=== PATIENT | male | born 1940 | race Caucasian/White ===

== ENCOUNTER → 2020-03-01 13:17 | Outpatient (BNVA) | payer MEDICARE, OTHER, SELFPAY | PROVIDERS: Family Provider Nurse Practitioner Family; PCP Nurse Practitioner Family; Visit Provider Internal Medicine Rheumatology | DX: M35.3 Polymyalgia rheumatica (principal); Z79.899 Other long term (current) drug therapy; Z11.59 Encounter for screening for other viral diseases; Z11.1 Encounter for screening for respiratory tuberculosis; Z72.89 Other problems related to lifestyle; D89.89 Other specified disorders involving the immune mechanism, not elsewhere classified | CPT/HCPCS: 36415; 80076; 82565; 85025; 85651; 86140; 86480; 86704; 86803; 87340 ==

== ENCOUNTER → 2020-03-01 13:56 | Outpatient (BNVA) | payer MEDICARE, OTHER, SELFPAY | PROVIDERS: Family Provider Nurse Practitioner Family; PCP Nurse Practitioner Family; Visit Provider Internal Medicine Rheumatology | DX: M35.3 Polymyalgia rheumatica (principal); D89.89 Other specified disorders involving the immune mechanism, not elsewhere classified | CPT/HCPCS: 85025 ==

== ENCOUNTER → 2020-04-20 08:36 | Outpatient (BNVA) | payer MEDICARE, OTHER, SELFPAY | PROVIDERS: Family Provider Nurse Practitioner Family; PCP Nurse Practitioner Family; Visit Provider Nurse Practitioner Family | DX: D64.9 Anemia, unspecified (principal); I10 Essential (primary) hypertension; E78.00 Pure hypercholesterolemia, unspecified | CPT/HCPCS: 80053; 80061; 85025 ==

== ENCOUNTER → 2020-08-09 14:13 | Outpatient (BNVA) | payer MEDICARE, OTHER, SELFPAY | PROVIDERS: Family Provider Nurse Practitioner Family; PCP Nurse Practitioner Family; Visit Provider Internal Medicine | DX: M35.3 Polymyalgia rheumatica (principal); Z79.52 Long term (current) use of systemic steroids; Z79.899 Other long term (current) drug therapy | CPT/HCPCS: 36415; 80053; 82550; 85025; 85651; 86140; 99213 ==

== ENCOUNTER → 2020-11-01 13:52 | Outpatient (BNVA) | payer MEDICARE, OTHER, SELFPAY | PROVIDERS: Family Provider Nurse Practitioner Family; PCP Nurse Practitioner Family; Visit Provider Internal Medicine | DX: M35.3 Polymyalgia rheumatica (principal); G62.9 Polyneuropathy, unspecified; Z79.52 Long term (current) use of systemic steroids; Z87.891 Personal history of nicotine dependence | CPT/HCPCS: 99213 ==

== ENCOUNTER → 2021-02-20 14:23 | Outpatient (BNVA) | payer MEDICARE, OTHER, SELFPAY | PROVIDERS: Family Provider Nurse Practitioner Family; PCP Nurse Practitioner Family; Visit Provider Nurse Practitioner Family | DX: R19.7 Diarrhea, unspecified (principal); J11.1 Influenza due to unidentified influenza virus with other respiratory manifestations | CPT/HCPCS: 87400 ==

== ENCOUNTER → 2021-04-25 09:06 | Outpatient (BNVA) | payer MEDICARE, OTHER, SELFPAY | PROVIDERS: Family Provider Nurse Practitioner Family; PCP Nurse Practitioner Family; Visit Provider Internal Medicine | DX: Z01.89 Encounter for other specified special examinations (principal); M35.3 Polymyalgia rheumatica; M19.90 Unspecified osteoarthritis, unspecified site; Z79.899 Other long term (current) drug therapy; G62.9 Polyneuropathy, unspecified | CPT/HCPCS: 80053; 85025; 85651; 86140 ==

== ENCOUNTER → 2021-04-27 13:45 | Outpatient (BNVA) | payer MEDICARE, OTHER, SELFPAY | PROVIDERS: Family Provider Nurse Practitioner Family; PCP Nurse Practitioner Family; Visit Provider Internal Medicine | DX: M35.3 Polymyalgia rheumatica (principal); Z87.891 Personal history of nicotine dependence | CPT/HCPCS: 99213 ==

== ENCOUNTER → 2021-08-09 09:51 | Outpatient (BNVA) | payer MEDICARE, OTHER, SELFPAY | PROVIDERS: Family Provider Nurse Practitioner Family; PCP Nurse Practitioner Family; Visit Provider Internal Medicine | DX: Z79.899 Other long term (current) drug therapy (principal); M35.3 Polymyalgia rheumatica | CPT/HCPCS: 80053; 85025; 85651; 86140 ==

== ENCOUNTER → 2021-08-16 09:40 | Outpatient (BNVA) | payer MEDICARE, OTHER, SELFPAY | PROVIDERS: Family Provider Nurse Practitioner Family; PCP Nurse Practitioner Family; Visit Provider Internal Medicine | DX: M35.3 Polymyalgia rheumatica (principal); G62.9 Polyneuropathy, unspecified; Z79.899 Other long term (current) drug therapy | CPT/HCPCS: 71046; 73120; 99214 ==

== ENCOUNTER 2021-08-16 11:31 | Outpatient (CLI) | payer MEDICARE, OTHER, SELFPAY ==
--- NOTE | 2021-08-16 11:42 | XR_ITS ---
WS: [id number] XR chest 2V* [id number] REASON FOR EXAM: Z79.899 - Other custodial (current) drug therapy FINDINGS: Previous sternotomy. Moderate tortuosity and ectasia of the thoracic aorta without focal aneurysmal dilatation. Normal hea rt size. Calcified granulomatous disease in both hemithoraces. No active pulmonary parenchymal or pleural dise ase. Dorsal column stimulator T7 level. Mild thoracic scoliosis convex right. No significant vertebral body abnormality. XR/XR chest 2V* [id number] IMPRESSION: No significant pulmonary abnormality.
--- NOTE | 2021-08-16 11:42 | XR_ITS ---
WS: [id number] XR hand RT 2V [id number] REASON FOR EXAM: M35.3 - Polymyalgia rheumatica FINDINGS: Arthropathic change characterized by joint space narrowing, subchondral sclerosis, and small osteophy tic spurs is seen in the DIP and MIP joints of the second and third fingers. Similar arthropathic changes are seen in the MP joints of the second through the fifth fingers, most notably in the second and third. Similar arthropathic change, although more severe, is seen in the joints of the thumb most notably th e carpal metacarpal joint. No soft tissue abnormality. 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
--- NOTE | 2021-08-16 11:42 | XR_ITS ---
WS: [id number] XR hand LT 2V [id number] REASON FOR EXAM: M35.3 - Polymyalgia rheumatica FINDINGS: Mild narrowing of the joint space with subchondral sclerosis and small osteophytes involving the MIP and DIP joints of the second and third fingers. Similar arthropathic changes seen in the joints of th e thumb including the carpal metacarpal joint which shows the most severe arthropathic change in the hand. No soft tissue abnormality. XR/XR hand LT 2V [id number] IMPRESSION: Arthropathic change in the left hand compatible with osteoarthritis as above.
== END 2021-08-16 11:32 | disposition home or self-care (01) ==
LOC: RAD 11:39
PROVIDERS: PCP Nurse Practitioner Family; Visit Provider Internal Medicine
DX: G62.9 Polyneuropathy, unspecified (principal); M35.3 Polymyalgia rheumatica; Z79.899 Other long term (current) drug therapy
CPT/HCPCS: 71046; 73120

== ENCOUNTER → 2021-10-13 08:34 | Outpatient (BNVA) | payer MEDICARE, OTHER, SELFPAY | PROVIDERS: PCP Nurse Practitioner Family; Visit Provider Internal Medicine | DX: G62.9 Polyneuropathy, unspecified (principal); M35.3 Polymyalgia rheumatica; Z79.899 Other long term (current) drug therapy | CPT/HCPCS: 80053; 85025; 85651; 86140 ==

== ENCOUNTER → 2021-10-18 09:04 | Outpatient (BNVA) | payer MEDICARE, OTHER, SELFPAY | PROVIDERS: PCP Nurse Practitioner Family; Visit Provider Internal Medicine | DX: M35.3 Polymyalgia rheumatica (principal); G62.9 Polyneuropathy, unspecified; Z79.52 Long term (current) use of systemic steroids; Z87.891 Personal history of nicotine dependence | CPT/HCPCS: 99213; 99214 ==

== ENCOUNTER → 2022-01-18 09:16 | Outpatient (BNVA) | payer MEDICARE, OTHER, SELFPAY | PROVIDERS: PCP Nurse Practitioner Family; Visit Provider Nurse Practitioner Family | DX: E78.5 Hyperlipidemia, unspecified (principal); I10 Essential (primary) hypertension | CPT/HCPCS: 80053; 80061 ==

== ENCOUNTER 2022-01-31 08:57 | Outpatient (CLI) | payer MEDICARE, OTHER, SELFPAY ==
[2022-01-31 09:43] LABS: Basophils % 0.6 %; Eosinophils # 0.3 10^3/uL (0.0-0.8); Eosinophils % 4.4 %; Hematocrit 34.7 % (42.0-52.0); Hemoglobin 11.3 g/dL (11.7-16.6); Lymphocytes # 1.7 10^3/uL (0.8-4.8); Lymphocytes % 25.9 %; Mean Corpuscular HGB Conc 32.6 g/dL (30.0-36.0); Mean Corpuscular Hemoglobin 29.9 pg (28.0-34.0); Mean Corpuscular Volume 91.8 fl (80-94); Mean Platelet Volume 10.4 fL (7.4-10.4); Monocytes # 0.7 10^3/uL (0.2-0.9); Monocytes % 10.2 %; Neutrophils # 3.86 10^3/uL (1.8-7.7); Neutrophils % 58.6 %; Nucleated Red Blood Cells % 0 %; Platelet Count 307 10^3/cmm (130-400); Red Blood Count 3.78 10^6/uL (4.1-5.3); Red Cell Distribution Width 14.3 % (12.1-15.1); White Blood Count 6.6 10^3/uL (4.0-10.0)
[2022-01-31 10:09] LABS: Alanine Aminotransferase 9 U/L (0-41); Albumin Level 4.3 g/dL (3.5-5.2); Alkaline Phosphatase 51 IU/L (40-130); Anion Gap 14.8 (5-19); Aspartate Amino Transferase 15 U/L (0-40); Blood Urea Nitrogen 15 mg/dL (8-23); Calcium 8.4 mg/dL (8.5-10.5); Carbon Dioxide 25 mmol/L (22-29); Chloride 106 mmol/L (98-107); Globulin 2.4 g/dL (1.3-4.6); Glucose 109 mg/dL (65-115); Osmolality Calculated 295 mOsm/kg (285-295); Potassium 3.8 mmol/L (3.5-5.1); Sodium 142 mmol/L (136-145); Total Bilirubin 0.4 mg/dL (0.15-1.2); Total Protein 6.7 g/dL (6.6-8.7)
[2022-01-31 10:13] LABS: Erythrocyte Sedimentation Rate 15 mm/hr (0-10)
== END 2022-01-31 08:58 | disposition home or self-care (01) ==
LOC: LAB 09:01
PROVIDERS: Internal Medicine; PCP Nurse Practitioner Family; Visit Provider Nurse Practitioner Family
DX: M35.3 Polymyalgia rheumatica (principal); Z79.899 Other long term (current) drug therapy; G62.9 Polyneuropathy, unspecified; M79.643 Pain in unspecified hand; Z87.891 Personal history of nicotine dependence
CPT/HCPCS: 36415; 80053; 85025; 85651; 86140; 99213; 99214

== ENCOUNTER → 2022-05-22 08:35 | Outpatient (BNVA) | payer MEDICARE, OTHER, SELFPAY | PROVIDERS: PCP Nurse Practitioner Family; Visit Provider Internal Medicine | DX: M35.3 Polymyalgia rheumatica (principal); E78.5 Hyperlipidemia, unspecified; Z79.899 Other long term (current) drug therapy | CPT/HCPCS: 80053; 85025; 85651; 86140 ==

== ENCOUNTER → 2022-05-28 09:15 | Outpatient (BNVA) | payer MEDICARE, OTHER, SELFPAY | PROVIDERS: PCP Nurse Practitioner Family; Visit Provider Nurse Practitioner Family | DX: M25.50 Pain in unspecified joint (principal); W57.XXXA Bitten or stung by nonvenomous insect and other nonvenomous arthropods, initial encounter | CPT/HCPCS: 86618; 86666; 86757 ==

== ENCOUNTER → 2022-06-11 12:07 | Outpatient (BNVA) | payer MEDICARE, OTHER, SELFPAY | PROVIDERS: PCP Nurse Practitioner Family; Visit Provider Internal Medicine | DX: M35.3 Polymyalgia rheumatica (principal); M25.50 Pain in unspecified joint | CPT/HCPCS: 99213 ==

== ENCOUNTER 2022-06-13 12:04 | Emergency (ER) | payer MEDICARE, OTHER, SELFPAY ==
[2022-06-13 12:09] VITALS: BP 184/84; PULSE 83; RESP 16; TEMP 36.4; O2SAT 97
--- NOTE | 2022-06-13 13:04 | CTR_ITS ---
PROCEDURE INFORMATION: Exam: CT Head Without Contrast Exam date and time: 06/13/2022 3:44 PM Age: 81 years old Clinical indication: Pain; Other: Forehead lac; Prior surgery; Surgery date: 6+ months; Surgery type: Hit by a tree limb in forehead--; Additional info: Trauma TECHNIQUE: Imaging protocol: Computed tomography of the head without contrast. Radiation optimization: All CT scans at this facility use at least one of these dose optimization techniques: automated exposure control; mA and/or kV adjustment per patient size (includes targeted exams where dose is matched to clinical indication); or iterative reconstruction. COMPARISON: No relevant prior studies available. RADIATION DOSE METRICS: Total DLP (mGy-cm): 1088.68 FINDINGS: Brain: No hemorrhage, mass effect or midline shift. No acute, major vascular distribution infarction identified. There is foci of decreased attenuation in the periventricular and subcortical white matter, likely representing chronic small vessel ischemic changes. Mild cerebral volume loss is present. No intra-axial or extra-axial fluid collection seen. Cerebral ventricles: No ventriculomegaly. Paranasal sinuses: Visualized sinuses are unremarkable. No fluid levels. Mastoid air cells: Visualized mastoid air cells are well aerated. Bones/joints: Unremarkable. No acute fracture. Soft tissues: There is mild swelling of the soft tissues and subcutaneous emphysema in the mid forehead, consistent with laceration and history of trauma. No hematoma identified. CT/CT head wo con* [id number] IMPRESSION: No acute intracranial abnormality.
--- NOTE | 2022-06-13 13:04 | CTR_ITS ---
PROCEDURE INFORMATION: Exam: CT Maxillofacial Without Contrast Exam date and time: 06/13/2022 3:49 PM Age: 81 years old Clinical indication: Injury or trauma; Other: Hit by tree limb in forehead; Blunt trauma (contusions or hematomas); Prior surgery; Surgery date: 6+ months; Surgery type: Melanoma; Additional info: Trauma/laceration TECHNIQUE: Imaging protocol: Computed tomography of the of the face without contrast. Radiation optimization: All CT scans at this facility use at least one of these dose optimization techniques: automated exposure control; mA and/or kV adjustment per patient size (includes targeted exams where dose is matched to clinical indication); or iterative reconstruction. COMPARISON: CT head wo con* [id number] 06/13/2022 3:44 PM RADIATION DOSE METRICS: Total DLP (mGy-cm): 595.28 FINDINGS: Orbital cavities: Bilateral lens replacement noted. Bones/joints: No acute fracture. Paranasal sinuses: Normal. No air-fluid levels. Soft tissues: There is skin irregularity, mild swelling of the soft tissues and subcutaneous edema in the forehead, consistent with laceration and history of trauma. CT/CT facial bones wo con* [id number] IMPRESSION: No acute osseous injury.
--- NOTE | 2022-06-13 13:04 | CTR_ITS ---
PROCEDURE INFORMATION: Exam: CT Cervical Spine Without Contrast Exam date and time: 06/13/2022 3:52 PM Age: 81 years old Clinical indication: Injury or trauma; Other: Hit by tree liimb; Blunt trauma; Prior surgery; Surgery date: 6+ months; Surgery type: Melanoma TECHNIQUE: Imaging protocol: Computed tomography of the cervical spine without contrast. Radiation optimization: All CT scans at this facility use at least one of these dose optimization techniques: automated exposure control; mA and/or kV adjustment per patient size (includes targeted exams where dose is matched to clinical indication); or iterative reconstruction. COMPARISON: CT facial bones wo con* [id number] 06/13/2022 3:49 PM RADIATION DOSE METRICS: Total DLP (mGy-cm): 315.57 FINDINGS: Bones/joints: Mild dextrocurvature of the cervical spine is present. The normal lordosis is maintained, without listhesis. No fracture identified. Vertebral body heights are well preserved. Discs/Spinal canal/Neural foramina: There is multilevel degenerative changes, manifested by intervertebral disc space narrowing, endplate osteophytes and facet joint arthrosis. There is a small posterior central disc protrusion at C4-C5. No severe spinal canal stenosis. No significant neural foraminal narrowing. Lungs: Lung apices are normal. Soft tissues: Unremarkable. CT/CT cervical spin wo con* [id number] IMPRESSION: No acute injury.
--- NOTE | 2022-06-13 15:32 | W.ED.HEATRA ---
HPI - Head Injury General: Chief complaint: Head Injury Stated complaint: face injury Time Seen by Provider: 06/13/22 15:16 Source: patient and family () Mode of arrival: ambulatory Limitations: no limitations History of Present Illness: Patient is a nice 81-year-old male who presents to ED today along with his for evaluation of a head injury and forehead laceration. Patient states he was cutting down a tree when one of the branches fell and struck him on his forehead. Questionable LOC but states no as patient was able to contact her most immediately after it happened. His last tetanus was 5 years ago. He complains of a bite or headache. He does not have any Tomás back.. No other injury sustained. Onset (ago): day(s) Mechanism of Injury: other (blunt/direct blow) Place: home Loss of Consciousness: unsure Location of injury: frontal Severity: mild Radiation: none Other Injuries: none Context: on aspirin Associated symptoms: Reports no associated symptoms; Deny confusion, nausea, neck pain, syncope or vomiting Review of Systems Eyes: Denies: change in vision, blurry vision, photophobia or eye discomfort Card: Denies: chest pain, palpitations, lightheadedness, syncope or pre-syncope Resp: Denies: dyspnea GI: Denies: nausea or vomiting Musc: Denies: neck pain, back pain, extremity pain or joint pain Skin/Breast: Reports: other (forehead laceration) Neuro: Reports: headache(s) (minor); Denies: numbness in extremities, weakness in extremities, sensory changes, difficulty walking, frequent falls, dizziness, confusion, behavioral changes, Slurred speech present, difficulty communicating thoughts or seizure-like activity [facility] ED PFSH: Medical History History of prostate cancer 2015 RADIATION [place] HTN (hypertension) with goal to be determined Hyperlipidemia Polymyalgia rheumatica Surgical History H/O shoulder surgery RIGHT AND LEFT History of knee replacement LEFT MAY 2018 Stented coronary artery Family History Father CAD (coronary artery disease) Mother CAD (coronary artery disease) Brother Stroke Social History Smoking and tobacco status: former smoker Alcohol intake: never Household members: spouse Marital status: Current occupational status: retired Current gender identity: Male Physical Exam Const: COMMON NORMALS: no acute distress, average body habitus, patient oriented x3, no limitations, alert and well nourished GENERAL APPEARANCE: cooperative ORIENTATION/CONSCIOUSNESS: Yes awake, Yes oriented to person, Yes oriented to place and Yes oriented to time OTHER: hard of hearing HENMT: COMMON NORMALS: normocephalic, atraumatic, external ears normal, EAC's normal, TM's normal bilaterally and Normal external nose present HEAD & SCALP: normal to inspection, normocephalic and atraumatic FACE & SINUS: other (4.0 central forehead laceration; bleeding controlled ) NOSE: Normal external nose present EXTERNAL EAR: Yes external ears normal EXTERNAL AUDITORY CANAL: EAC's normal TYMPANIC MEMBRANE: TM's normal bilaterally MOUTH: other (no intraoral injuries noted) OTHER: a few minor facial abrasions that do not require repair; ecchymosis developing to bilateral periorbital regions; full painless EOMs; no vision loss/change; no fb sensations present per patient Eye: COMMON NORMALS: Equal, round and reactive pupils present, EOMs intact bilaterally and conjunctivae normal GENERAL EYE: normal light reflex VISUAL ACUITY: Yes acuity normal ALIGNMENT: Yes alignment normal PERIORBITAL: periorbital findings abnormal (ecchymosis ) EYELID: eyelids normal CONJUNCTIVA: Yes conjunctivae normal SCLERA: sclerae normal CORNEA: Yes corneas normal PUPIL: Yes Equal, round and reactive pupils present DIRECT OPHTHALMOSCOPY: Yes normal light reflex Neck/C-Spine: COMMON NORMALS: full ROM GENERAL: Yes normal visual inspection CERVICAL SPINE: Yes cervical ROM normal, No pain with cervical ROM, No Cervical spine tenderness and No step off deformity Chest: COMMONS NORMALS: normal inspection of the chest and normal palpation of entire chest wall Resp: COMMON NORMALS: normal respiratory effort and clear to auscultation bilaterally AUSCULTATION: clear to auscultation bilaterally Cardio: COMMON NORMALS: regular rate and regular rhythm RATE: regular rate RHYTHM: regular rhythm Back/Pelvis: COMMON NORMALS: thoracic and lumbar spine normal to inspection, no thoracic nor lumbar tenderness and thoraco-lumbar ROM normal Extremity: COMMON NORMALS: normal to inspection and full ROM GENERAL: Yes normal exam except as noted Neuro: MARSHA COMA SCALE: document [facility] findings [place] coma scale eye opening: Spontaneous [place] coma scale verbal response: Orientated Marsha coma scale motor response: Obey commands [place] coma scale total score: 15 COMMON NORMALS: patient oriented x3, CN's II-XII intact bilaterally, moves all extremities, no focal motor deficits and no sensory deficits noted SENSORIUM/ORIENTATION: Yes alert, Yes oriented to person, Yes oriented to place and Yes oriented to time Skin: NARRATIVE SKIN EXAM: see documented for pertinent skin findings Procedures Laceration Laceration 1: Site: face (forehead) Size (cm): 4.0 Description: linear Depth: simple, single layer Local Anesthetic: lidocaine 1% and with epi Amount of anesthesia used (mL): 4.0 Pre-repair: wound explored and irrigated extensively Skin layer closed with: nylon Size (cm): 5-0 Number of sutures: 6 Technique: running Course Vital Signs: Vital signs: Vital Signs Temperature 97.5 F L 06/13/22 12:09 Pulse Rate 83 06/13/22 12:09 Respiratory Rate 16 06/13/22 12:09 Blood Pressure 184/84 06/13/22 12:09 Pulse Oximetry 97 06/13/22 12:09 MDM - Head Injury Medcial Decision Making CT head, cervical spine, facial negative. Forehead laceration was copiously irrigated and repaired as documented. Tetanus is up-to-date. Wound care and infection precautions discussed at home as well as suture removal time. Return to ED precautions given. Lab Data Radiology Impressions Cervical Spine CT 06/13/22 13:04 IMPRESSION: No acute injury. Face CT 06/13/22 13:04 IMPRESSION: No acute osseous injury. Head CT 06/13/22 13:04 IMPRESSION: No acute intracranial abnormality. Discharge Plan Discharge Patient Disposition: Home Clinical Impression: Closed head injury Qualifiers: Encounter type: initial encounter Qualified Code(s): S09.90XA - Unspecified injury of head, initial encounter Forehead laceration Qualifiers: Encounter type: initial encounter Qualified Code(s): S01.81XA - Laceration without foreign body of other part of head, initial encounter Condition: Stable Prescriptions: No Action nitroglycerin [Nitrostat] 0.4 mg tablet, sublingual 0.4 mg SUBLINGUAL Q5M PRN0RF rosuvastatin 40 mg tablet See Rx Instructions .ROUTE .COMPLEX Qty: 90 1RF Dose Instruction: TAKE 1 TABLET BY MOUTH DAILY Rx Instructions: TAKE 1 TABLET BY MOUTH DAILY prednisone 5 mg tablet 5 mg PO DAILY Qty: 90 1RF hydroxychloroquine 200 mg tablet 200 mg PO BID Qty: 60 3RF doxycycline monohydrate 100 mg capsule 100 mg PO BID 14 Days Qty: 28 0RF levocetirizine [Xyzal] 5 mg tablet 5 mg PO DAILY Qty: 90 0RF omeprazole 20 mg capsule,delayed release(DR/EC) See Rx Instructions .ROUTE .COMPLEX Qty: 180 0RF Dose Instruction: TAKE 1 CAPSULE BY MOUTH TWICE DAILY Rx Instructions: TAKE 1 CAPSULE BY MOUTH TWICE DAILY albuterol sulfate 90 mcg/actuation HFA aerosol inhaler See Rx Instructions .ROUTE .COMPLEX Qty: 25.5 0RF Dose Instruction: INHALE 2 PUFFS BY MOUTH EVERY 6 HOURS NEEDED FOR SHORTNESS OF BREATH Rx Instructions: INHALE 2 PUFFS BY MOUTH EVERY 6 HOURS NEEDED FOR SHORTNESS OF BREATH lisinopril 40 mg tablet See Rx Instructions .ROUTE .COMPLEX Qty: 90 0RF Dose Instruction: TAKE 1 TABLET BY MOUTH DAILY Rx Instructions: TAKE 1 TABLET BY MOUTH DAILY prednisone 1 mg tablet 1 mg PO DAILY Qty: 120 1RF Rx Instructions: take 4 daily for 1 month; 3 tabs for 1 month; 2 tabs for 1 month; 1 tab for 1 month. gabapentin 100 mg capsule 100 mg PO BID 30 Days Qty: 60 3RF cholecalciferol (vitamin D3) 25 mcg (1,000 unit) capsule 25 mcg PO DAILY Qty: 90 0RF diclofenac sodium 1 % gel 2 g topical QID Qty: 100 2RF Rx Instructions: apply to single elbow, wrist or hand; for hand includes palm/fingers/back of hand Lactobacillus acidophilus 100 mg (1 billion cell) capsule 100 mg PO DAILY Qty: 30 0RF Rx Instructions: give 30 min before meal/food Discharge Orders: Discharge ED (Routine); Ordered 06/13/22 Ordered By: Nurys Canela Referrals: Kiley Malone FNP [Primary Care Provider] - Patient Instructions: Laceration (DC), Head Injury (DC), Facial Laceration (ED) Activity Restrictions/Additional Instructions: Keep wound/laceration clean with warm soap and water twice daily. Monitor for signs of infection such as redness, swelling, increased pain, or drainage. Please seek medical re-evaluation if these occur. If you received sutures today these will need to be removed (unless you were told by the provider that they are absorbable). The provider should have discussed with you the length of time until removal-5 TO 7 DAYS. You may return to the emergency department for this service. Coding Level of Care Code ED Chlorination Operator for Lio Victoria
== END 2022-06-13 17:19 | disposition home or self-care (01) ==
PROVIDERS: Emergency Provider Physician Assistant; PCP Nurse Practitioner Family
DX: S01.81XA Laceration without foreign body of other part of head, initial encounter (principal); S09.8XXA Other specified injuries of head, initial encounter; Z85.46 Personal history of malignant neoplasm of prostate; I10 Essential (primary) hypertension; E78.5 Hyperlipidemia, unspecified; Z87.891 Personal history of nicotine dependence; W20.8XXA Other cause of strike by thrown, projected or falling object, initial encounter
CPT/HCPCS: 12013; 70450; 70486; 72125; 99283

== ENCOUNTER → 2022-08-30 09:58 | Outpatient (BNVA) | payer MEDICARE, OTHER, SELFPAY | PROVIDERS: PCP Nurse Practitioner Family; Visit Provider Nurse Practitioner Family | DX: I10 Essential (primary) hypertension (principal); E55.9 Vitamin D deficiency, unspecified; M35.3 Polymyalgia rheumatica; G62.9 Polyneuropathy, unspecified; Z79.899 Other long term (current) drug therapy | CPT/HCPCS: 80053; 82306; 85025; 86140 ==

== ENCOUNTER 2022-09-14 11:04 | Outpatient (CLI) | payer MEDICARE, OTHER, SELFPAY ==
--- NOTE | 2022-09-14 11:18 | XR_ITS ---
WS: [id number] Thoracic spine, 3 views, 09/14/2022 Clinical Data: back pain Comparison: None. Findings: No compression fractures are seen. The disc heights are normal. Minimal anterior osteoarthritic spurring is seen in the lower thoracic vertebral bodies. The paravert ebral region is normal. Midline sternotomy sutures are seen. There are epidural stimulator wires with the leads ending at the T7-T9 space. XR/XR thoracic spine 3V* [id number] Impression: 1. Negative for compression fracture. 2. Minimal osteoarthritic change T7-T12.
--- NOTE | 2022-09-14 11:18 | XR_ITS ---
WS: [id number] Lumbar spine, 3 views, 09/14/2022 Clinical Data: injury Comparison: None. Findings: No compression fractures or subluxation is seen. No disc space narrowing is seen. The transverse proc esses and SI joints are normal. The epidural stimulator generator and its wires are located in the posterior subcutaneous tissue. The re is calcification of the wall of the abdominal aorta but no aneurysm. On the L5-S1 images there are metal artifacts overlying the femoral heads. XR/XR lumbar spine 2-3V* [id number] Impression: Negative lumbar spine.
== END 2022-09-14 11:05 | disposition home or self-care (01) ==
LOC: RAD 11:08
PROVIDERS: PCP Nurse Practitioner Family; Visit Provider Registered Nurse Neonatal Intensive Care
DX: S39.92XA Unspecified injury of lower back, initial encounter; X58.XXXA Exposure to other specified factors, initial encounter
CPT/HCPCS: 72072; 72100

== ENCOUNTER 2022-09-17 13:42 | Outpatient (CLI) | payer MEDICARE, OTHER, SELFPAY ==
--- NOTE | 2022-09-17 13:58 | XRR_ITS ---
PROCEDURE INFORMATION: Exam: XR Right Ribs Exam date and time: 09/17/2022 2:07 PM Age: 82 years old Clinical indication: Pain; Pleurodynia; Additional info: R07.81 - pleurodynia TECHNIQUE: Imaging protocol: Radiologic exam of the Right ribs. Views: 2 views. COMPARISON: CR XR chest 2V* [id number] 08/16/2021 12:10 PM FINDINGS: Bones/joints: Four views submitted. No acute fracture or destructive bony lesions. Sternotomy wires and CABG clips. Intraspinal wires at midthoracic level similar to prior exam. Pleural space: No obvious pneumothorax or pleural effusion. Soft tissues: Normal. XR/XR ribs RT 2V* [id number] IMPRESSION: No acute findings.
== END 2022-09-17 13:43 | disposition home or self-care (01) ==
LOC: RAD 13:44
PROVIDERS: PCP Nurse Practitioner Family; Visit Provider Nurse Practitioner Family
DX: R07.81 Pleurodynia (principal)
CPT/HCPCS: 71100

== ENCOUNTER → 2022-10-09 14:52 | Outpatient (BNVA) | payer MEDICARE, OTHER, SELFPAY | PROVIDERS: PCP Nurse Practitioner Family; Visit Provider Nurse Practitioner Family | DX: R52 Pain, unspecified (principal); M25.50 Pain in unspecified joint | CPT/HCPCS: 82550 ==

== ENCOUNTER → 2022-11-29 10:51 | Outpatient (BNVA) | payer MEDICARE, OTHER, SELFPAY | PROVIDERS: PCP Nurse Practitioner Family; Visit Provider Internal Medicine | DX: M35.3 Polymyalgia rheumatica (principal); M19.90 Unspecified osteoarthritis, unspecified site; Z79.899 Other long term (current) drug therapy | CPT/HCPCS: 80053; 85025; 85651; 86140 ==

== ENCOUNTER → 2022-12-07 08:33 | Outpatient (BNVA) | payer MEDICARE, OTHER, SELFPAY | PROVIDERS: PCP Nurse Practitioner Family; Visit Provider Nurse Practitioner Family | DX: E78.5 Hyperlipidemia, unspecified (principal); G62.9 Polyneuropathy, unspecified; M25.50 Pain in unspecified joint; M35.3 Polymyalgia rheumatica; M79.643 Pain in unspecified hand; Z79.899 Other long term (current) drug therapy | CPT/HCPCS: 80053; 80061; 85025; 86140 ==

== ENCOUNTER → 2023-01-09 10:04 | Outpatient (BNVA) | payer MEDICARE, OTHER, SELFPAY | PROVIDERS: PCP Nurse Practitioner Family; Visit Provider Internal Medicine | DX: M35.3 Polymyalgia rheumatica (principal); Z79.52 Long term (current) use of systemic steroids | CPT/HCPCS: 99214 ==

== ENCOUNTER → 2023-01-29 10:28 | Outpatient (BNVA) | payer MEDICARE, OTHER, SELFPAY | PROVIDERS: PCP Nurse Practitioner Family; Visit Provider Internal Medicine | DX: M35.3 Polymyalgia rheumatica (principal) | CPT/HCPCS: 80053; 85025; 85651; 86140 ==

== ENCOUNTER → 2023-07-02 09:35 | Outpatient (BNVA) | payer MEDICARE, OTHER, SELFPAY | PROVIDERS: PCP Nurse Practitioner Family; Visit Provider Internal Medicine | DX: M25.50 Pain in unspecified joint (principal); M35.3 Polymyalgia rheumatica; E78.5 Hyperlipidemia, unspecified | CPT/HCPCS: 80053; 85025; 85651; 86140 ==

== ENCOUNTER → 2023-07-18 10:04 | Outpatient (BNVA) | payer MEDICARE, OTHER, SELFPAY | PROVIDERS: PCP Nurse Practitioner Family; Visit Provider Internal Medicine | DX: M35.3 Polymyalgia rheumatica (principal); M25.50 Pain in unspecified joint; Z79.52 Long term (current) use of systemic steroids | CPT/HCPCS: 99214 ==

== ENCOUNTER → 2023-12-25 11:00 | Outpatient (BNVA) | payer MEDICARE, OTHER, SELFPAY | PROVIDERS: PCP Nurse Practitioner Family; Visit Provider Nurse Practitioner Family | DX: R53.83 Other fatigue (principal); I10 Essential (primary) hypertension; Z48.02 Encounter for removal of sutures; Z79.899 Other long term (current) drug therapy | CPT/HCPCS: 80053; 80061; 83721; 85025 ==

== ENCOUNTER 2024-04-13 10:31 | Outpatient (CLI) | payer MEDICARE, OTHER, SELFPAY ==
--- NOTE | 2024-04-13 11:00 | CT_ITS ---
WS: [id number] CT LUMBAR SPINE TECHNIQUE: Noncontrast CT of the lumbar spine with coronal and sagittal reformatted images. CLINICAL INFORMATION: M54.50 - Low back pain, unspecified COMPARISON: None. DLP: 560.[address] scans at [facility] use at least one of these dose optimization techniques: automated e xposure control; mA and/or kV adjustment per patient size (includes targeted exams where dose is matc hed to clinical indication); or iterative reconstruction. FINDINGS: Partially visualized spinal stimulator. Slight grade 1 anterolisthesis L4 on L5. Vascular calcificati on. Aortic calcification. Slightly aneurysmal dilatation infrarenal abdominal aorta measuring 2.0 x 2 .0 cm. Moderate degenerative arthritis sacroiliac joints. L1-L2: Mild annular bulging. Spinal canal and foramen are patent. Mild facet arthropathy. L2-L3: Mild annular bulging. Moderate facet arthropathy. Spinal canal and foramen are patent. L3-L4: Mild annular bulging with slight effacement of the ventral thecal sac. Mild facet arthropathy. Mild LEFT foraminal narrowing. L4-L5: Grade 1 anterolisthesis. Disc bulging in combination with facet arthropathy and ligamentum fla vum hypertrophy results in moderate to severe central canal stenosis. Impingement subarticular recess bilaterally. Advanced facet arthropathy. Moderate RIGHT and mild LEFT foraminal narrowing. L5-S1: Mild disc bulging with impingement on the LEFT subarticular recess and traversing LEFT S1 ner ve root. Recommend correlation LEFT S1 nerve root symptoms. Moderate facet arthropathy. Mild LEFT for aminal narrowing Visualized pelvic bony structures: Normal. Paravertebral soft tissues: Normal. CT/CT lumbar spine wo con* [id number] IMPRESSION: 1. Moderate to severe central canal stenosis L4-5 due to disc bulging with fac et arthropathy and ligamentum flavum hypertrophy. Grade 1 anterolisthesis at th is level. Impingement of the traversing L5 nerve roots. 2. Moderate RIGHT L4-5 foraminal narrowing. 3. LEFT paracentral protrusion L5-S1 impinges the LEFT S1 nerve root. 4. Partially visualized spinal stimulator.
== END 2024-04-13 10:32 | disposition home or self-care (01) ==
LOC: RAD 10:31
PROVIDERS: PCP Nurse Practitioner Family; Visit Provider Nurse Practitioner Family
DX: M43.16 Spondylolisthesis, lumbar region (principal); M48.061 Spinal stenosis, lumbar region without neurogenic claudication; M51.36 Other intervertebral disc degeneration, lumbar region; M47.896 Other spondylosis, lumbar region; M46.06 Spinal enthesopathy, lumbar region; M99.63 Osseous and subluxation stenosis of intervertebral foramina of lumbar region; M51.27 Other intervertebral disc displacement, lumbosacral region; Z96.82 Presence of neurostimulator; M47.898 Other spondylosis, sacral and sacrococcygeal region
CPT/HCPCS: 72131

== ENCOUNTER 2025-05-24 08:28 | Outpatient (CLI) | payer MEDICARE, OTHER, SELFPAY ==
--- NOTE | 2025-05-24 09:00 | USR_ITS ---
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 . . TECHNIQUE: Imaging protocol: Real-time ultrasound scan of the arteries of the bilateral lower extremities with 2-D daniels scale, color Doppler flow and spectral waveform analysis. Images documented and saved. COMPARISON: No relevant prior studies available. FINDINGS: Right common femoral artery: No occlusion or significant stenosis. Normal waveform. Right superficial femoral artery: No occlusion or significant stenosis. Normal waveform. Right popliteal artery: No occlusion or significant stenosis. Normal waveform. Right calf/foot arteries: No occlusion or significant stenosis in the visualized arteries. Normal waveforms. Dorsalis pedis artery is patent. JOHN: 1.2 Left common femoral artery: No occlusion or significant stenosis. Normal waveform. Left superficial femoral artery: No occlusion or significant stenosis. Normal waveform. Left popliteal artery: No occlusion or significant stenosis. Normal waveform. Left calf/foot arteries: No occlusion or significant stenosis in the visualized arteries. Normal waveforms. Dorsalis pedis artery is patent. JOHN: 1.12 US/CV arterial duplex [facility] [id number] IMPRESSION: No stenosis or occlusion.
== END 2025-05-24 08:29 | disposition home or self-care (01) ==
LOC: RAD 08:29
PROVIDERS: PCP Nurse Practitioner Family; Visit Provider Nurse Practitioner Family
DX: I25.708 Atherosclerosis of coronary artery bypass graft(s), unspecified, with other forms of angina pectoris (principal)
CPT/HCPCS: 93925